=== PATIENT | female | born 1980 ===

== ENCOUNTER 2018-05-17 13:52 | Emergency (ER) | payer OTHER ==
[2018-05-17 14:06] VITALS: BP 121/83; PULSE 85; RESP 20; TEMP 98.3; O2SAT 99
--- NOTE | 2018-05-17 18:38 | C.PDOC ---
History Of Present Illness 37 year old female presents to the emergency department with complaints of throat pain for the past three days. She denies fever, coughing, chest pain, shortness of breath. She reports she is able to tolerate PO. Chief Complaint (Nursing): ENT Problem History Per: Patient History/Exam Limitations: no limitations Onset/Duration Of Symptoms: Days (3) Current Symptoms Are (Timing): Still Present Location Of Pain: Throat Associated Symptoms: Sore Throat. denies: Fever, Other (chest pain, shortness of breath) Past Medical History Reviewed: Historical Data, Nursing Documentation, Vital Signs Vital Signs: Last Vital Signs Temp 98.3 F 05/17/18 14:04 Pulse 85 05/17/18 14:04 Resp 20 05/17/18 14:04 BP 121/83 05/17/18 14:04 Pulse Ox 99 05/17/18 18:42 - Medical History PMH: No Chronic Diseases Surgical History: No Surg Hx Family History: States: No Known Family Hx - Social History Hx Alcohol Use: No Hx Substance Use: No - Immunization History Hx Tetanus Toxoid Vaccination: Yes Hx Influenza Vaccination: Yes Hx Pneumococcal Vaccination: Yes Review Of Systems Except As Marked, All Systems Reviewed And Found Negative. Constitutional: Negative for: Fever ENT: Positive for: Throat Pain Cardiovascular: Negative for: Chest Pain Respiratory: Negative for: Shortness of Breath Physical Exam - Physical Exam Appears: Non-toxic, No Acute Distress Skin: Warm, Dry Head: Atraumatic, Normacephalic Eye(s): bilateral: Normal Inspection Ear(s): Bilateral: Normal Nose: Normal Throat: Erythema, Exudate (bilateral) Neck: Normal, Supple Lymphatic: Adenopathy (lateral cervical adenopathy) Cardiovascular: Rhythm Regular Respiratory: Normal Breath Sounds Gastrointestinal/Abdominal: Normal Exam, Soft, No Tenderness Neurological/Psych: Oriented x3, Normal Speech, Normal Cognition ED Course And Treatment O2 Sat by Pulse Oximetry: 99 (RA) Pulse Ox Interpretation: Normal Disposition - Disposition Referrals: [facility] [Outside] [facility] [Outside] Disposition: HOME/ ROUTINE Disposition Time: 14:40 Condition: GOOD Additional Instructions: ANN MARIE RAMOS, thank you for letting us take care of you today. Your provider was Konrad Pearce DO and you were treated for THROAT PAIN. The emergency medical care you received today was directed at your acute symptoms. If you were prescribed any medication, please fill it and take as directed. It may take several days for your symptoms to resolve. Return to the Emergency Department if your symptoms worsen, do not improve, or if you have any other problems. Please contact your doctor or call one of the physicians/clinics you have been referred to that are listed on the Patient Visit Information form that is included in your discharge packet. Bring any paperwork you were given at discharge with you along with any medications you are taking to your follow up visit. Our treatment cannot replace ongoing medical care by a primary care provider outside of the emergency department. Thank you for allowing the [facility] team to be part of your care today. Complete the prescription as prescribed. Follow up in the clinic this week for further management and re-evaluation. ANN MARIE RAMOS, elisha por dejarnos atenderlo hoy. Hartley proveedor fue Konrad Passafaro DO y usted fue tratado por DOLOR DE GARGANTA. La atencin mdica de emergencia que recibi hoy estaba dirigida a kyleigh sntomas agudos. Si le prescribieron algn medicamento, llnelo y tome segn las indicaciones. Kyleigh s ntomas pueden tardar varios pedroza en resolverse. Regrese al Departamento de Emergencia si kyleigh sntomas empeoran, no mejoran o si tiene algn otro problema. Comunquese con hartley mdico o llame a kelsey de los mdicos / clnicas a los que barroso sido referido que figura en el formulario de Informacin de visita del paciente que se incluye en hartley paquete de nallely. Traiga todos los documentos que recibi al momento del nallely junto con los medicamentos que est tomando en hartley visita de seguimiento. Nuestro tratamiento no puede reemplazar la atencin mdica en curso por un proveedor de atencin primaria fuera del departamento de emergencia. Elisha por permitir que el equipo de [facility] sea parte de hartley cuidado hoy. Complete la prescripcin segn lo prescrito. Diamond un seguimiento en la clnica esta semana para felicita mayor administracin y reevaluacin. Prescriptions: Azithromycin [Zithromax] 250 mg PO DAILY #6 tab Instructions: Sore Throat, Adult (DC) Forms: Gen Discharge Inst Beninese, [employer] (Beninese) Print Language: CROATIAN - Clinical Impression Clinical Impression: Acute infective tonsillitis - Scribe Statement The provider has reviewed the documentation as recorded by the Scribe (Agustín Guajardo) Provider Attestation: All medical record entries made by the Scribe were at my direction and personally dictated by me. I have reviewed the chart and agree that the record accurately reflects my personal performance of the history, physical exam, medical decision making, and the department course for this patient. I have also personally directed, reviewed, and agree with the discharge instructions and disposition.
== END 2018-05-17 15:05 | disposition home or self-care (01) ==
LOC: C.ER 13:52
DX: J03.90 Acute tonsillitis, unspecified (principal)

== ENCOUNTER 2018-05-21 13:46 | Emergency (ER) | payer OTHER ==
[2018-05-21 14:03] VITALS: BP 108/71; PULSE 78; RESP 18; TEMP 98.4; O2SAT 100
[2018-05-21] MEDS ORDERED: Amoxicillin-Clav 875-125 mg Tab PO STA (14:17)
--- NOTE | 2018-05-21 14:18 | C.PDOC ---
History Of Present Illness 37 yo female come in for evaluation of low grade fever, malaise, worsening of throat pain and swelling for past 2 weeks. Pt sts, was seen by PMD week ago and completed Zithromax without improvement. Pt reports, noted some exudates as well. Otherwise, pt denies high fever, headache, dizziness, drooling, neck pain or swelling, cough, CP, SOB, wheezing, abd. pain, V/D, UTi sx, denies recent travel or known sick contact. Ambulate to Ed for evaluation, not in any apparent distress. Time Seen by Provider: 05/21/18 13:52 Chief Complaint (Nursing): ENT Problem History Per: Patient Past Medical History Reviewed: Historical Data, Nursing Documentation, Vital Signs Vital Signs: Last Vital Signs Temp 98.4 F 05/21/18 14:02 Pulse 78 05/21/18 14:02 Resp 18 05/21/18 14:02 BP 108/71 05/21/18 14:02 Pulse Ox 100 05/21/18 14:17 - Medical History PMH: No Chronic Diseases Family History: States: No Known Family Hx - Social History Hx Alcohol Use: No Hx Substance Use: No - Immunization History Hx Tetanus Toxoid Vaccination: Yes Hx Influenza Vaccination: Yes Hx Pneumococcal Vaccination: Yes Review Of Systems Except As Marked, All Systems Reviewed And Found Negative. Constitutional: Positive for: Fever, Malaise. Negative for: Chills ENT: Positive for: Nose Congestion, Throat Pain, Throat Swelling. Negative for : Ear Discharge, Nose Discharge Cardiovascular: Negative for: Chest Pain Respiratory: Negative for: Cough, Shortness of Breath, Wheezing Gastrointestinal: Negative for: Nausea, Vomiting, Abdominal Pain, Diarrhea Genitourinary: Negative for: Dysuria Skin: Negative for: Rash Neurological: Negative for: Headache, Dizziness Physical Exam - Physical Exam Appears: Well, Non-toxic, No Acute Distress Skin: Normal Color, Warm, Dry, No Rash Head: Normacephalic Eye(s): bilateral: PERRL Ear(s): Bilateral: Normal Nose: No Flaring, Discharge Oral Mucosa: No Drooling, No Trismus Tongue: Normal Appearing Lips: Normal Appearing Throat: Erythema (diffuse B/L with edema.), Exudate (scant B/L), No Drooling, Other (uvula midline, no edema.) Neck: Trachea Midline, Supple, Other ((-) meningeal sign) Cardiovascular: Rhythm Regular Respiratory: No Decreased Breath Sounds, No Accessory Muscle Use, No Stridor, No Wheezing Gastrointestinal/Abdominal: Soft, No Tenderness Back: No CVA Tenderness Extremity: Normal ROM, No Deformity, No Swelling Neurological/Psych: Oriented x3, Normal Speech ED Course And Treatment O2 Sat by Pulse Oximetry: 100 Pulse Ox Interpretation: Normal Progress Note: On re-evlauation, pt is afebrile, hemodynamicaly stable. Tolerate Po well in Ed. PulseOx 100% RA. Neck: Supple, (-)meningeal sign. ENT : exam c/w acute pharyngitis, early tonsillitis. uvula midline, no edema. Lungs : CTA B/L, BS equal B/L. CVS: (+)S1S2, reg, (-) murmur. Abd: benign, (-) guarding, (-) rebound. back: (-) CVA tenderness. Pt advised and ref. to f/u with ENT in 2-3 days for re-eavl. return if any new changes. Disposition Counseled Patient/Family Regarding: Diagnosis, Need For Followup, Rx Given - Disposition Referrals: [facility] [Outside] Disposition: HOME/ ROUTINE Disposition Time: 14:17 Condition: STABLE Additional Instructions: Encourage fluids Take medication as prescribed' Follow up with PMD in 2-3 days for re-evaluation. return to ED if any worsening or new changes. Prescriptions: Amoxicillin/Clavulanate [Augmentin 875 MG-125 MG] 1 tab PO BID #14 tab Prednisone [Deltasone] 20 mg PO DAILY #3 tablet Instructions: Sore Throat, Adult (DC) Forms: [employer] (East Timorese) Print Language: BENINESE - Clinical Impression Clinical Impression: Pharyngitis
[2018-05-21] MEDS ORDERED: Amoxicillin-Clav 875-125 mg Tab PO ONE (14:39)
== END 2018-05-21 14:41 | disposition home or self-care (01) ==
LOC: C.ER 13:46
DX: J02.9 Acute pharyngitis, unspecified (principal)

== ENCOUNTER 2018-08-13 16:56 | Emergency (ER) | payer MEDICAID ==
[2018-08-13 17:04] VITALS: BMI 22.4
[2018-08-13 17:05] VITALS: BP 120/83; PULSE 70; RESP 20; TEMP 98.1; O2SAT 100
--- NOTE | 2018-08-13 17:10 | C.PDOC ---
History Of Present Illness 37 year old female with no past medical history presents to the ER for left axillary abscess. Patient states she noticed 2 abscess on the left axilla about 2 days ago and yesterday she decided to drain them. She states a good amount of pus drained from both of them yesterday. She also states today another one appeared under her axilla which is painful. She denies fever, chills, nausea or vomiting. She states this is the first time this has occurred. Past Medical History: denies Medications: denies Allergies: Aspirin - rash <Marilee Gupta - Last Filed: 08/13/18 17:17> <Marilee Gupta - Last Filed: 08/13/18 17:17> <Jean-Claude Driscoll - Last Filed: 08/14/18 10:13> Time Seen by Provider: 08/13/18 17:07 Chief Complaint (Nursing): Abnormal Skin Integrity Past Medical History Vital Signs: Last Vital Signs Temp 98.1 F 08/13/18 17:04 Pulse 70 08/13/18 17:04 Resp 20 08/13/18 17:04 BP 120/83 08/13/18 17:04 Pulse Ox 100 08/13/18 17:04 Family History: States: Unknown Family Hx - Social History Hx Alcohol Use: No Hx Substance Use: No - Immunization History Hx Tetanus Toxoid Vaccination: Yes Hx Influenza Vaccination: Yes Hx Pneumococcal Vaccination: Yes <Marilee Gupta - Last Filed: 08/13/18 17:17> Vital Signs: Last Vital Signs Temp 98.1 F 08/13/18 17:04 Pulse 70 08/13/18 17:04 Resp 20 08/13/18 17:04 BP 120/83 08/13/18 17:04 Pulse Ox 100 08/13/18 17:29 <Jean-Claude Driscoll - Last Filed: 08/14/18 10:13> Review Of Systems Constitutional: Negative for: Fever, Chills Cardiovascular: Negative for: Chest Pain, Palpitations Respiratory: Negative for: Cough, Shortness of Breath Gastrointestinal: Negative for: Nausea, Vomiting Genitourinary: Negative for: Dysuria Skin: Positive for: Other (left axillary abscess x3 ) <Marilee Gupta - Last Filed: 08/13/18 17:17> Physical Exam - Physical Exam Appears: Well, Non-toxic, No Acute Distress Skin: Other (Left axillary abscess x2 and left upper flank abscess ) Head: Atraumatic, Normacephalic Oral Mucosa: Moist Cardiovascular: Rhythm Regular Respiratory: Normal Breath Sounds <Marilee Gupta - Last Filed: 08/13/18 17:17> ED Course And Treatment O2 Sat by Pulse Oximetry: 100 <Marilee Gupta - Last Filed: 08/13/18 17:17> Medical Decision Making Medical Decision Making: Left Axillary Abscess x2 and Left upper flank abscess were evaluated at bedside. Patient counselled to take antibiotics one tablet twice a day for 10 day. Patient was instructed to return if they grow or worsen. <Marilee Gupta - Last Filed: 08/13/18 17:17> Medical Decision Making: abscess indurated, not at stage for i&d, will treat with oral abics and advise follow up with pmd within 2 days. <Jean-Claude Driscoll - Last Filed: 08/14/18 10:13> Disposition Discussed With : Jean-Claude Driscoll Doctor Will See Patient In The: ED Counseled Patient/Family Regarding: Studies Performed, Diagnosis, Need For Followup, Rx Given - Disposition Disposition Time: 17:24 <Marilee Gupta - Last Filed: 08/13/18 17:17> <Jean-Claude Driscoll - Last Filed: 08/14/18 10:13> - Disposition Referrals: Marilee Gupta [Emergency Midlevel Provider] - [facility] [Outside] [facility] [Outside] Disposition: HOME/ ROUTINE Condition: GOOD Additional Instructions: Comience antibiticos, felicita tableta dos veces al da kunal 10 pedroza. Por favor regrese al hospital si el absceso crece o empeora. Por favor blanquita felicita carlos alberto con nuestra [facility] en 1 semana. Prescriptions: Sulfamethoxazole/Trimethoprim [Bactrim DS 800 mg-160 mg] 1 tab PO BID 10 Days #20 tab Instructions: Boil, Abscess Incision and Drainage Forms: [employer] (Latvian) Print Language: LEBANESE - Clinical Impression Clinical Impression: Abscess of arm, left - PA / JOURNAL CLERK / Resident Statement MD/DO has reviewed & agrees with the documentation as recorded. MD/DO has examined the patient and agrees with the treatment plan. <Marilee Gupta - Last Filed: 08/13/18 17:17>
== END 2018-08-13 17:33 | disposition home or self-care (01) ==
LOC: C.ER 16:56
DX: L02.412 Cutaneous abscess of left axilla (principal)